=== PATIENT | female | born 1970 | race Caucasian/White ===

== ENCOUNTER → 2017-05-16 | Outpatient (CLI) | payer OTHER | LOC: RAD 14:39 | DX: Z12.31 Encounter for screening mammogram for malignant neoplasm of breast (principal) ==

== ENCOUNTER 2018-09-11 04:24 | Emergency (ER) | payer OTHER ==
[~2018-09-11] VITALS: Ht 165.1 cm; Wt 127.0 kg
[2018-09-11] MEDS ORDERED: BIOFLEX TABLET1 EACH PO (04:35)
[2018-09-11] MEDS ORDERED: IBUPROFEN 200200 M1 (04:36)
[2018-09-11] MEDS ORDERED: CIPRODEX OTIC7.5 ML OTIC (05:36)
[2018-09-11] MEDS ORDERED: MOBIC15 MG PO (05:36)
[2018-09-11 05:57] VITALS: BP 129/76
== END 2018-09-11 05:59 | disposition home or self-care (01) ==
LOC: ER 04:24
DX: H60.92 Unspecified otitis externa, left ear (principal); Z90.49 Acquired absence of other specified parts of digestive tract; Z98.890 Other specified postprocedural states